=== PATIENT | female | born 1990 | race Caucasian/White ===

== ENCOUNTER → 2016-11-27 21:53 | Observation (INO) ==
[2016-11-27 20:35] VITALS: BP 115/59
[2016-11-27 21:03] LABS: Bilirubin,Urine Negative (Negative); Blood,Urine Negative (Negative); Clarity,Urine Turbid (Clear); Color,Urine Yellow (Yellow); Glucose,Urine (UA) Normal (Normal); Ketones,Urine Negative (Negative); Leukocyte Esterase,Urine Trace (Negative); Nitrite,Urine Negative (Negative); PH,Urine 6.5 pH Units (5.0-8.0); Protein,Urine Negative (Neg-Trace); Urobilinogen,Urine Normal (Normal)
[2016-11-27 21:04] LABS: Bacteria,Urine Moderate per hpf (None-Few); Hyaline Casts,Urine None Seen per lpf (None-Few); Squamous Epithelial Cell,Urine Many per lpf (None-Few)
[2016-11-27 21:09] LABS: Amphetamine Screen,Urine Negative ng/mL (Cutoff=1000); Barbiturate Screen,Urine Negative ng/mL (Cutoff=200); Benzodiazepines Screen,Urine Negative ng/mL (Cutoff=200); Cannabinoid Screen,Urine Negative ng/mL (Cutoff = 50); Cocaine Screen,Urine Negative ng/mL (Cutoff= 300); Opiate Screen,Urine Negative ng/mL (Cutoff=300); Phencyclidine Screen,Urine Negative ng/mL (Cutoff=25)
--- NOTE | 2016-11-27 21:09 | OB/GYN Progress Note ---
Date of Encounter: 11/27/16 Time of Encounter: 21:04 - Assessment and Plan (1) 33 weeks gestation of Current Visit: Yes Status: Acute Reactive NST. Denies any contractions, pain, or complaints. (2) Dizziness Current Visit: Yes Status: Acute Reported elevated BPs prior to arrival. Pt normotensive since initiating monitoring in L&D. Reactive NST. Will continue to monitor then plan for discharge home with precautions. Already has appointment with primary OB in am. Subjective - Subjective Principal diagnosis: dizziness Interval history: Patient is a pleasant, appropriate 26 year old female who presents to L& D triage reporting some dizziness and elevated BP while at work earlier this evening. Patient reports that she called her doctor and was told to be seen for evaluation. 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 Patient also states some intermittent light contractions during the dizziness and elevated BP. Patient currently, while in L&D, is normotensive and reports resolution of contractions and denies any complaints at this time including headache, blurred vision, chest pain, abdominal pain, leaking fluid, vaginal bleeding, or urinary symptoms. Patient reports recently having and being treated for UTI and reports she finished her complete course of antibiotics. Antepartum ROS: movement normal, no vaginal bleeding, no contractions Objective - Vital Signs Vital Signs: Vital Signs Temp Pulse Resp BP 11/27/16 20:23 97.1 F L 92 16 115/59 Intake and Output 11/27/16 11/27/16 11/27/16 07:59 15:59 23:59 Other: Weight 93.6 kg Patient Weight 11/27/16 23:59 Weight 93.6 kg - Exam FHR: auscultation normal FHR comments: reactive NST Auscultation: bilateral: normal Abdomen: Present: normal appearance, soft, gravid. Absent: tenderness Uterus: Present: normal, firm Cervical dilation: closed, thick, and high Cervix effacement: thick
[2016-11-27 22:15] LABS: Amorphous Sediment,Urine Many (Few); Mucus,Urine Few (Few)
== END | disposition home or self-care (01) ==
LOC: 1NENULAB
PROVIDERS: ADMIT Registered Nurse; ATTEND Registered Nurse

== ENCOUNTER → 2016-12-27 16:43 | Observation (INO) ==
--- NOTE | 2016-12-27 17:10 | OB/GYN Progress Note ---
Date of Encounter: 12/27/16 Time of Encounter: 17:07 - Assessment and Plan (1) Uterine contractions during Status: Acute Pt states contractions has lessened since arrival. Pt now feels she is not in labor, cervical exams unchanged at 1.5/thick/long. Pt desires discharge. Discussed when to call provider and return to triage for evaluation. Pt verbalizes understanding (2) 37 weeks gestation of Status: Acute Pt also with nausea and heartburn. Recommend pepcid 1 tab q am OTC. (3) NST (non-stress test) reactive Status: Acute Subjective - Subjective Interval history: complains of increase in contractions this afternoon. Pt states she has also had nausea today with emesis x1 here in triage, but this has been occurring throughout . Pt reports good movement, denies vaginal bleeding or leaking of fluid. Antepartum ROS: movement normal, contractions, no loss of fluid, no vaginal bleeding Objective - Vital Signs Vital Signs: Intake and Output 12/27/16 12/27/16 12/27/16 07:59 15:59 23:59 Other: Weight 92.8 kg Patient Weight 12/27/16 23:59 Weight 92.8 kg - Exam FHR: auscultation normal FHR comments: Baseline 135 Auscultation: bilateral: normal Abdomen: Present: normal appearance, soft, gravid Uterus: Present: normal Cervical dilation: 1.5/long/high
== END | disposition home or self-care (01) ==
LOC: 1NENULAB
PROVIDERS: ADMIT Obstetrics & Gynecology; ATTEND Obstetrics & Gynecology

== ENCOUNTER 2018-12-31 01:33 | Inpatient (IN) ==
--- NOTE | 2018-12-31 00:54 | OB/GYN History & Physical ---
Date of Encounter: 12/31/18 Time of Encounter: 00:48 Assessment and Plan (1) 38 weeks gestation of Current visit: Yes Status: Acute (2) Previous delivery affecting Current visit: Yes Status: Acute (3) Hepatitis C Current visit: Yes Status: Acute Qualifiers: Viral hepatitis chronicity: chronic Hepatic coma status: without hepatic coma Qualified Code(s): B18.2 - Chronic viral hepatitis C (4) Spontaneous onset of labor after 37 but before 39 completed weeks gestation with delivery by planned section Current visit: Yes Status: Acute Admit for repeat delivery given that pt is in active labor with previous . Pt last ate at 1999. Initial SVE /-2, repeat -/-2 BBOW Plan for Ancef pre-op. Dr. Luque attending. (5) Tobacco abuse Current visit: Yes Status: Acute (6) History of opioid abuse Current visit: Yes Status: Acute (7) History of depression Current visit: Yes Status: Acute History of Present Illness Chief complaint: contractions HPI: Ms. Day is a 28 year old female presenting at 38w2d with EDC 01/12/19 by LMP conf by 8wk US. She receives care with Dr. Perdomo at [place]. She reports she was there earlier this evening for contractions but was discharged at 8pm at 1.5cm dilated. She reports the contractions have gotten stronger. She had a vaginal delivery with her first in 2007 followed by a delivery in 2017. She reports her was for non-reassuring well being while pushing. She also reports that her c/s was complicated by extension of the uterine incision. She was counseled that she would need a repeat c/s with this . She does admit a history of heroine use prior to 2014 for which she was on subutex until early in this . She reports she has been off all opiates for at least 6 months. She denies any other substance abuse i ncluding marijuana. She does admit to using tobacco. She has a known history of hepatitis C. B positive Rubella immune Hep B, HIV, RPR negative Hep C positive GBS unknown Past Med Surg Social Fam HX - Past Medical History Medical history: hepatitis, other Additional medical history: HEP C FROM PREVIOUS DRUG ABUSE. STATES HAS BEEN CLEAN X1 YEAR. Psychiatric history: no psych history - Past Surgical History Surgical History: - Social History Smoking Status: Current every day smoker Packs per day: 0.5 Smokeless Tobacco Status: No Alcohol use: none Drug use: none - Family History Mother Living Status: Still Living Hx Family Cardiac Disorders: No Hx Family Respiratory Disorders: No Hx Family Cancer: No Hx Family GI Disorders: No Hx Family Genitourinary Disorders: No Hx Family Endocrine Disorder: No Hx Family Musculoskeletal Disorders: No Hx Family Neuromuscular Disorders: No Hx Family Neurologic Disorders: No Hx Family HEENT Disorders: No Hx Family Autoimmune Disorders: No Hx Family Reproductive Disorders: No Hx Family Psychosocial Disorders: No Hx Family Medical Disorders: No Obstetrical History - Pregnancies : 3 Para: 2 Term: 2 : 0 Ab's: 0 Livin - History/Complications History/Complications: Pt has custody of second child. First child lives with family in [place]. Medications and Allergies Formula Tablet 1 tab PO DAILY 11/27/16 [History] 3 Allergy/AdvReac Type Severity Reaction Status Date / Time No Known Allergies Allergy Verified 01/21/17 18:33 Review of System OB All systems PM: reviewed and no additional remarkable complaints except as stated Exam - Constitutional Constitutional: well developed, well nourished, no acute distress - HEENT HEENT: Mucus Membranes Moist - Lungs Respiratory exam: CTAB - Cardiovascular Cardiovascular exam: RRR, +S1, +S2 - Abdomen Abdomen: Present: gravid, non tender - Extremities Extremities exam: normal inspection - Vulva Vulva: bilateral: normal - Cervix Dilation: 3 Effacement: 70 Station: -2 - Anus/Rectum Anus/Rectum: Present: normal perianal skin Results All other labs normal.
[2018-12-31 01:33] LABS: Basophils # 0.1 K/mcL (0.0-0.2); Basophils % 0.5 %; Eosinophils # 0.3 K/mcL (0.0-0.6); Eosinophils % 2.3 %; Hematocrit 38.4 % (35.3-44.9); Hemoglobin 12.6 g/dL (11.5-15.4); Immature Granulocytes % 1.5 % (0-4); Lymphocytes # 2.5 K/mcL (0.6-4.6); Lymphocytes % 19.3 %; Mean Corpuscular HGB Conc 32.8 g/dL (31.6-35.5); Mean Corpuscular Hemoglobin 29.4 pg (28.0-33.3); Mean Corpuscular Volume 89.5 fL (83.0-100.0); Mean Platelet Volume 10.2 fL (9.4-12.4); Monocytes # 1.2 K/mcL (0.0-1.3); Monocytes % 9.5 %; Neutrophils # 8.5 K/mcL (1.6-8.9); Platelet Count 261 K/mcL (140-400); Red Blood Count 4.29 M/mcL (3.82-4.97); Red Cell Distribution Width 13.5 % (11.5-14.5); Segmented Neutrophils % 66.9 %; White Blood Count 12.7 K/mcL (4.3-11.1)
[~2018-12-31 01:33] MED LIST: CeFAZolin Premix DUPLEX 2,000 MG/50 ML BAG IVPB ONE; Famotidine 20 MG/2 ML VIAL IVP ONE; Metoclopramide 10 MG/2 ML VIAL IVP ONE; Oxytocin 20 units/ LR 1000 mL 20 UNIT/1,000 ML BAG IVC SCH; Ringers Solution, Lactated 1,000 ML IVC ONE; Ringers Solution, Lactated 1,000 ML ONE
[2018-12-31 01:44] LABS: Amphetamine Screen,Urine Negative ng/mL (Cutoff=1000); Barbiturate Screen,Urine Negative ng/mL (Cutoff=200); Benzodiazepines Screen,Urine Negative ng/mL (Cutoff=200); Cannabinoid Screen,Urine Negative ng/mL (Cutoff = 50); Cocaine Screen,Urine Negative ng/mL (Cutoff= 300); Opiate Screen,Urine Negative ng/mL (Cutoff=300); Phencyclidine Screen,Urine Negative ng/mL (Cutoff=25)
[2018-12-31] MEDS ORDERED: *HR* Morphine Sulfate/PF 10 MG/10 ML AMPUL ONE (01:47)
[2018-12-31] MEDS ORDERED: *HR* FentaNYL (PF) 100 MCG/2 ML VIAL ONE (01:47)
[2018-12-31] MEDS ORDERED: EPHEDrine 50 MG/ML VIAL ONE (01:47)
[2018-12-31] MEDS ORDERED: Water for inj. (sterile) 10 ML ONE ×2 (01:50→02:17)
[2018-12-31] MEDS ORDERED: *HR* Oxytocin 10 UNIT/ML VIAL IM ONE (01:50)
[2018-12-31] MEDS ORDERED: Lidocaine -MPF 2% 5 ML VIAL ONE (01:51)
[2018-12-31] MEDS ORDERED: Bupivacaine/PF 0.75% in Dex 2 ML AMPUL INFILT ONE (01:51)
--- NOTE | 2018-12-31 02:47 | Anesthesia Evaluation PreOp ---
Date of Encounter: 12/31/18 Time of Encounter: 01:35 - Past History Planned Operation: repeat c section Pulmonary History: Smoker (smokes 1/2 ppd X 10 years.), Asthma (as a child, hasn't had any problems for years, on no meds.) HOUSE RN History: Denies Any Significant HX Other Medical History: Hepatic (Hepatitis C positive), Other (Previous drug use, none with this .) Anesthesia History: No Prior Anesthetic Complications, Past Anesthesia (c section under GA, no complications. Previous epidural X 1 without problems. No FHAP.) : Yes Alcohol Use: none Drug use: none Medications and Allergies Formula Tablet 1 tab PO DAILY 11/27/16 [History] Allergy/AdvReac Type Severity Reaction Status Date / Time No Known Allergies Allergy Verified 01/21/17 18:33 - Meds/Allergy Pre-op Review Medications Reviewed: Yes Allergies Reviewed: Yes Beta Blockers on Current Med List: No Anesthesia Results - Labs 12/31/18 00:40 Anesthesia Exam 134/75, 74, 20. FHTs 130s. Height: 5'1" Weight: 90 kg NPO (# of Hours): 6 Pain Scale: 10 Pain Scale Used: Numeric (1 - 10) - HEENT Pupil (Motor): Pupils equal Mallampati: III Teeth: Normal Oral Opening: Greater than 3 - HOUSE RN LOC: Oriented HOUSE RN Motor: Normal RUE, Normal LUE, Normal RLE, Normal LLE, Normal Face HOUSE RN Sensory: Normal: RUE, LUE, RLE, LLE, Face - Cardiac Rhythm: Regular - Pulmonary Breath Sounds: bilateral Clear Respiratory Effort: Symmetrical Anesthesia Assess/Plan ASA Score: 3 (smoker, remote history of asthma, Hepatitis C.) Level of consciousness: Cooperative, Oriented, Tranquil Anesthetic Plan: Spinal Monitoring Plan: Standard Monitors Recovery Plan: PACU
--- NOTE | 2018-12-31 03:19 | OB/GYN Procedure Note ---
Delivery - Delivery Date: 12/31/18 Provider: Adrianna uLque Intrapartum events: none Delivery induction: none Delivery augmentation: rupture of membranes Delivery monitor: external FHT, external uterine Anesthesia: epidural Quantitated Blood Loss: 100 - Infant (s) A Delivery Date: 12/31/18 Infant Delivery Time: 03:02 Presentation: vertex Position: JAJA Route of delivery: Gender: Male Viability: Viable Pounds: 7 Ounces: 5 Weight Gram: 3.335 kg at 1 minute: 9 at 5 mins: 9 Shoulder Dystocia: not encountered Placenta: spontaneous Cord: 3 umbilical vessels - Repair Episiotomy: none Laceration Description: None - Complications Delivery complications: none Delivery comments: Patient was consented for a vaginal delivery after section. Her water was broken. She proceeded to complete and pushed the baby out with excellent maternal effort. There was a spontaneous vaginal delivery of a male infant over an intact perineum in the right occiput anterior presentation. Cord was doubly clamped and cut, was on the mother's abdomen and was vigorously crying with Apgars of 9 and 9 at one and 5 minutes respectively. Perineum was intact. Placenta delivered spontaneously. The uterine incision was thoroughly evaluated. The incision was intact. We had minimal bleeding. Respiratory was present because the meconium stained fluid. no complications. Evette Escalante our scallop shucker and Dr. Mendosa performed the delivery together. she had excellent anesthesia.
[2018-12-31] MEDS ORDERED: Oxytocin 20 units/ LR 1000 mL 20 UNIT/1,000 ML BAG IVC SCH (06:08)
[2018-12-31] MEDS ORDERED: Lidocaine -MPF 1% 5 ML AMPUL ID PRN (06:08)
[2018-12-31] MEDS ORDERED: Ibuprofen 600 MG TABLET PO PRN (06:08)
[2018-12-31] MEDS ORDERED: Etonogestrel 68 MG IMPLANT IL PRN (06:08)
[2018-12-31] MEDS ORDERED: Acetaminophen 325 MG TABLET PO PRN (06:08)
[2018-12-31] MEDS: Prenatal Vit/FA 1 EACH TABLET PO SCH (07:52)
[2019-01-01] MEDS: Prenatal Vit/FA 1 EACH TABLET PO SCH (07:55)
[2019-01-01 08:26] VITALS: BP 113/75
--- NOTE | 2019-01-01 09:50 | Discharge Summary ---
Date of Encounter: 01/01/19 Time of Encounter: 09:48 - Discharge Diagnosis (1) Vaginal delivery Priority: Primary Status: Acute Comments: Pt states feeling well, pain well managed, tolerates diet, bleeding minimal, desires discharge, - Discharge Medications Prescriptions: New Acetaminophen [Tylenol] 650 mg PO Q6HR PRN tablet PRN Reason: Mild Pain Citalopram [CeleXA] 10 mg PO DAILY tablet Ibuprofen [Motrin] 600 mg PO Q6HR PRN #60 tablet PRN Reason: Cramping Docusate [Colace] 100 mg PO BID #30 capsule Lanolin [Lansinoh] 1 appl TP TID PRN oint...g. PRN Reason: nipple soreness Etonogestrel [Nexplanon] 68 mg [place] ONCE PRN implant PRN Reason: desires contraception Continued Formula Tablet 1 tab PO DAILY Home Medications: Formula Tablet 1 tab PO DAILY 11/27/16 [History] Acetaminophen [Tylenol] 650 mg PO Q6HR PRN tablet 01/01/19 [Rx] Citalopram [CeleXA] 10 mg PO DAILY tablet 01/01/19 [Rx] Docusate [Colace] 100 mg PO BID #30 capsule 01/01/19 [Rx] Etonogestrel [Nexplanon] 68 mg [place] ONCE PRN implant 01/01/19 [Rx] Ibuprofen [Motrin] 600 mg PO Q6HR PRN #60 tablet 01/01/19 [Rx] Lanolin [Lansinoh] 1 appl TP TID PRN oint...g. 01/01/19 [Rx] Allergies/Adverse Reactions: Allergy/AdvReac Type Severity Reaction Status Date / Time No Known Allergies Allergy Verified 01/21/17 18:33 Data Procedures and tests throughout hospitalization: Laboratory Tests 12/31/18 12/31/18 00:40 00:40 WBC 12.7 H RBC 4.29 Hgb 12.6 Hct 38.4 MCV 89.5 MCH 29.4 MCHC 32.8 RDW 13.5 Plt Count 261 MPV 10.2 Immature Gran % 1.5 Seg Neutrophils % 66.9 Lymphocytes % 19.3 Monocytes % 9.5 Eosinophils % 2.3 Basophils % 0.5 Neutrophils # 8.5 Lymphocytes # 2.5 Monocytes # 1.2 Eosinophils # 0.3 Basophils # 0.1 Urine Opiates Screen Negative Ur Buprenorphine Scrn Negative Ur Barbiturates Screen Negative Ur Phencyclidine Scrn Negative Ur Amphetamines Screen Negative U Benzodiazepines Scrn Negative Urine Cocaine Screen Negative U Marijuana (THC) Screen Negative Ur Drug Screen Interp See Below Date of admission: 12/31/18 01:33 Primary care physician: PCP KAYLAN Consults: 12/31/18 06:08 Consult to Powdered Sugar Supervisor [CONS] Routine Comment: Vaginal delivery, consult needed Consult to Repatcher [CONS] Routine Reason for SW Consult: history opiate use Discharging clinician: Sahra Clark Anticipated date of discharge: 01/01/19 - Patient Status Disposition: Home, Self-Care Condition: Good Functional capacity at discharge: independent ambulation Overall status at discharge: patient is progressing back to baseline - Discharge Instructions Follow Up With: NONE,PCP [Primary Care Provider] - Adrianna Luque MD [Partnered Physician] - - Diet and Activity Activity: resume usual activities as tolerated Diet: regular diet Hospital Course Reason for admission: IUP at term Delivery: Episiotomy: none Laceration: none Other procedures: none complications: none Discharge diagnosis: IUP at term delivered [place] baby: male Hospital course: Delivery - Delivery Date: 12/31/18 Provider: Adrianna Luque Intrapartum events: none Delivery induction: none Delivery augmentation: rupture of membranes Delivery monitor: external FHT, external uterine Anesthesia: epidural Quantitated Blood Loss: 100 - (s) A Delivery Date: 12/31/18 Infant Delivery Time: 03:02 Presentation: vertex Position: JAJA Route of delivery: Gender: Male Viability: Viable Pounds: 7 Ounces: 5 Weight Gram: 3.335 kg at 1 minute: 9 at 5 mins: 9 Shoulder Dystocia: not encountered Placenta: spontaneous Cord: 3 umbilical vessels - Repair Episiotomy: none Laceration Description: None - Complications Delivery complications: none Stable in PP and appropriate for discharge Time Attestation: Total time spent providing and/or coordinating discharge services: Time Spent: Less than 30 minutes Exam - Constitutional Vitals: Temp Pulse Resp BP Pulse Ox 98.3 F 80 16 113/75 97 01/01/19 08:25 01/01/19 08:25 01/01/19 08:25 01/01/19 08:25 12/31/18 21:20 General appearance IM: A&O X 3 - Respiratory Respiratory exam: Present: CTAB - Cardiovascular Cardiovascular exam IM: Present: RRR - GI/Abdominal GI/Abdominal exam IM: soft - Uterine Tone: Firm Uterus Position: At Umbilicus - Extremities Exam Extremities exam IM: Present: normal capillary refill, normal inspection - Neurological Exam Neurological exam: normal gait, oriented X3 - Psychiatric Additional comments: reports good mood
[2019-01-01] MEDS ORDERED: Lanolin 7 G OINT...G. TP PRN (10:14)
--- NOTE | 2019-01-01 18:23 | OB/GYN Procedure Note ---
OB-DAYTIME CAREGIVER: Procedure - Diagnosis Date of procedure: 01/01/19 Pre-op diagnosis: desires contraception Post-op diagnosis: same - Procedure Procedure: Nexplanon placement Surgeon: Sahra Clark Was there an diploma dental assistant present: No Anesthesia Type: Local Estimated blood loss (cc): 0 Procedure Complications: none Specimens collected: none Disposition: no change Narrative: Informed consent was obtained and time out performed. Patient was placed in the supine position with arm in the appropriate position. Betadine was used to prep the arm in a sterile fashion. 1% lidocaine with epinephrine was used to anesthe tize. The implant was inserted in the subcutaneous tissue to the appropriate length then the Nexplanon was released. Both myself and patient can palpate the marva without difficulty. A pressure dressing was applied. Patient tolerated the procedure well. She was ambulatory and was instructed on wound care to follow up PRN.
== END 2019-01-01 12:50 | disposition home or self-care (01) | DRG 540 ==
LOC: 1NENULAB → 1NENUOBS 06:05
PROVIDERS: ADMIT Registered Nurse; ATTEND Registered Nurse